=== PATIENT | female | born 1995 | race Caucasian/White ===

== ENCOUNTER 2017-03-08 05:41 | Emergency (ER) | payer MEDICAID, OTHER ==
[2017-03-08 05:46] VITALS: BP 101/57; PULSE 107; RESP 16; TEMP 100; O2SAT 93
[2017-03-08] MEDS ORDERED: BICILLIN L-A 1200000 UNIT/2 ML SYRINGE IM ONE (05:58)
[2017-03-08] MEDS ORDERED: DEXAMETHASONE 10 MG/ML VIAL IVP ONE (05:58)
[2017-03-08] MEDS ORDERED: ACETAMINOPHEN 325 MG TAB ONE (05:59)
[2017-03-08] MEDS ORDERED: ACETAMINOPHEN 500 MG TAB PO ONE (05:59)
--- NOTE | 2017-03-08 06:01 | EDPHY ---
H & P Stated Complaint: sore throat x4d, fever Time Seen by Provider: 03/08/17 05:52 HPI/ROS: HPI The patient presents with sore throat which has been present for the last 1 day , she had about 3 days of intermittent fever before this. The sore throat is achy, constant, worse with swallowing, moderate in severity. She has noticed some exudates of her posterior pharynx. She does not have a cough. She denies any known sick contacts.. REVIEW OF SYSTEMS Constitutional: No fever, no chills. Eyes: No discharge. ENT: + sore throat. Cardiovascular: No chest pain, no palpitations. Respiratory: No cough, no shortness of breath. Gastrointestinal: No abdominal pain, no vomiting. Genitourinary: No hematuria. Musculoskeletal: No back pain. Skin: No rashes. Neurological: No headache. PMHx: Healthy PHYSICAL General Appearance: Alert, no distress Eyes: Pupils equal and round no pallor or injection ENT, Mouth: Mucous membranes moist, posterior pharynx is erythematous with exudates Respiratory: There are no retractions, lungs are clear to auscultation Cardiovascular: Regular rate and rhythm Neurological: A&O, moves all extremities Skin: Warm and dry, no rashes Musculoskeletal: Anterior left-sided cervical adenopathy Neck is supple non tender Extremities: symmetrical, full range of motion Psychiatric: Patient is oriented X 3, there is no agitation Source: Patient Exam Limitations: No limitations - Personal History LMP (Females 10-55): IUD In Place Current Tetanus/Diphtheria Vaccine: Yes Current Tetanus Diphtheria and Acellular Pertussis (TDAP): Yes - Medical/Surgical History Hx Asthma: No Hx Chronic Respiratory Disease: No Hx Diabetes: No Hx Cardiac Disease: No Hx Renal Disease: No Hx Cirrhosis: No Hx Alcoholism: No Hx HIV/AIDS: No Hx Splenectomy or Spleen Trauma: No Other PMH: denies - Social History Smoking Status: Never smoked Constitutional: Initial Vital Signs Temperature (C) 37.8 C 03/08/17 05:43 Heart Rate 107 H 03/08/17 05:43 Respiratory Rate 16 03/08/17 05:43 Blood Pressure 101/57 L 03/08/17 05:43 O2 Sat (%) 93 03/08/17 05:43 O2 Delivery Mode Room Air Allergies/Adverse Reactions: No Known Allergies Allergy (Unverified 03/08/17 05:47) Home Medications: Medication Instructions Recorded NK [No Known Home Meds] 03/08/17 Medical Decision Making Differential Diagnosis: 21-year-old female with sore throat and fever for the last several days. On exam, febrile, well appearing, with posterior pharyngeal exudates, anterior lymphadenopathy, no cough. We will treat as strep pharyngitis by [facility] criteria. Also give a dose of Decadron for her pain. I have also considered viral pharyngitis, deep space neck infection. - Data Points Medications Given: Discontinued Medications Acetaminophen (Tylenol) 1,000 mg PO EDNOW ONE Stop: 03/08/17 06:00 Last Admin: 03/08/17 06:13 Dose: 1,000 mg Dexamethasone (Decadron Injection) 10 mg IVP EDNOW ONE Stop: 03/08/17 05:59 Last Admin: 03/08/17 06:14 Dose: 10 mg Penicillin G Benzathine (Bicillin L-A) 1,200,000 unit IM EDNOW ONE PRN Reason: Protocol Stop: 03/08/17 05:59 Last Admin: 03/08/17 06:12 Dose: 1,200,000 unit Departure - Departure Disposition: Home, Routine, Self-Care Clinical Impression: Strep pharyngitis Condition: Good Instructions: Strep Throat (ED) Referrals: NONE *PRIMARY CARE P,. [Primary Care Provider] - As per Instructions Stand Alone Forms: School Excuse
== END 2017-03-08 06:47 | disposition home or self-care (01) ==
DX: J02.0 Streptococcal pharyngitis (principal)
CPT/HCPCS: 96374; J0561